=== PATIENT | female | born 1970 | race Caucasian/White ===

== ENCOUNTER 2024-01-18 04:12 | Day surgery (SDC) | payer BC ==
[2024-01-13 16:54] VITALS: BMI 33.3
[2024-01-18] MEDS ORDERED: MIDAZOLAM HCL 2 MG/2 ML SINGLE DOSE VIAL ONE (07:16)
[2024-01-18] MEDS ORDERED: PHENYLEPHRINE HCL 10 MG/1 ML SINGLE DOSE VIAL ONE (07:16)
[2024-01-18] MEDS ORDERED: PROPOFOL 40 ML ONE (07:16)
[2024-01-18] MEDS ORDERED: DEXAMETHASONE SOD PHOSPHATE 4 MG/1 ML VIAL ONE (07:16)
[2024-01-18] MEDS ORDERED: ONDANSETRON 4 MG/2 ML VIAL ONE (07:16)
[2024-01-18] MEDS ORDERED: LIDOCAINE HCL/PF 2% SDV 5ML VIAL ONE (07:16)
[2024-01-18] MEDS ORDERED: metroNIDAZOLE 500 MG PREMIXED 1,000 MG/200 ML MG IVPB ONE (07:26)
[2024-01-18] MEDS ORDERED: oxyCODONE HCL 5 MG TABLET PO PRN ×2 (07:36→07:53)
[2024-01-18] MEDS ORDERED: ONDANSETRON 4 MG/2 ML VIAL IVPUSH PRN ×2 (07:36→07:53)
[2024-01-18] MEDS ORDERED: LACTATED RINGERS SOLUTION 1,000 ML IV SCH (07:45)
[2024-01-18] MEDS ORDERED: IBUPROFEN 600 MG TABLET (FP) PO PRN (07:53)
[2024-01-18] MEDS ORDERED: IBUPROFEN 800 MG/8 ML IJ IVPB PRN (07:53)
[2024-01-18] MEDS ORDERED: ELECTROLYTE-148 SOLN 1,000 ML IV SCH (08:00)
[2024-01-18 11:20] VITALS: BP 123/64; PULSE 68; RESP 20; TEMP 97.6
== END 2024-01-18 11:20 | disposition home or self-care (01) ==
LOC: JASU-SURG 04:12
PROVIDERS: ATTEND Obstetrics & Gynecology
PROC: 0UDB8ZX Extraction of Endometrium, Via Natural or Artificial Opening Endoscopic, Diagnostic (ICD-10-PCS; principal; 2024-01-18 07:30)
DX: N84.0 Polyp of corpus uteri (principal)
CPT/HCPCS: 81025; 86850; 86900; 86901; 88305-TC; 94760